=== PATIENT | male | born 1990 | race Caucasian/White ===

== ENCOUNTER 2024-02-26 22:00 | Emergency (ER) | payer OTHER, SELFPAY ==
--- NOTE | 2024-02-26 21:39 | ECG_ITS ---
APPROVED REPORT Exam: Resting ECG HR:85 bpm ECG Measurements Heart Rate 85 AXES GA 166 P 46 QRSd 94 QRS 113 QT 367 T 1 QTc 410 Conclusion SINUS RHYTHM POSSIBLE RIGHT VENTRICULAR HYPERTROPHY [SOME/ALL OF: PROMINENT R IN V1, LATE TRANSITION, RAD, KIM, SSS] NONSPECIFIC T-WAVE ABNORMALITY ABNORMAL ECG Electronically signed by : JESUS EDWARDS, 02/27/2024 00:47:20
[2024-02-26 22:04] VITALS: BP 146/91; PULSE 91; RESP 22; TEMP 36.7; O2SAT 100; BMI 43.4
[2024-02-26 22:12] VITALS: PULSE 91
--- NOTE | 2024-02-26 22:13 | XR_ITS ---
PROCEDURE INFORMATION: Exam: XR Chest Exam date and time: 02/26/2024 10:20 PM Age: 33 years old Clinical indication: Pain; Chest pressure; Additional info: Cp, SOA TECHNIQUE: Imaging protocol: Radiologic exam of the chest. Views: 2 views. COMPARISON: No relevant prior studies available. FINDINGS: Lungs: Unremarkable. No consolidation. Pleural spaces: Unremarkable. No pleural effusion. No pneumothorax. Heart/Mediastinum: Unremarkable. No cardiomegaly. Bones/joints: Unremarkable. IMPRESSION: No acute findings.
--- NOTE | 2024-02-26 22:23 | ED_ITS ---
Discharge Plan Disposition Patient Disposition: Home, Self-Care Condition: Good Referrals Follow up/Referrals: Antoni Bey MD [Staff Physician] - See instructions ProviderVicky MD [Referring] - See instructions Activity Restrictions/Add. Instructions Additional Instructions/Restrictions: You were evaluated in the emergency department today. At this time, your labs and workup are reassuring. Please follow-up very closely with her primary care provider as well as with cardiology. Please call cardiology clinic and schedule an appointment. Return to the emergency department for new or worsening symptoms. Clinical Impressions Clinical Impression: Chest pain Stand Alone Forms Stand Alone Forms: Work/School Release Instructions Patient Instructions: DI for Atypical Chest Pain Print Language Print Language: Albanian Discharge ED Provider: Nohelia Gailcia General Chief Complaint: Chest Pain Stated Complaint: Chest pain Time Seen by Provider: 02/26/24 22:01 Mode of Arrival: Family Vehicle Source of Information: Patient Limitations: No Limitations Description of Symptoms (Recalled from ER Triage Doc. by RN): 33 yo male presents with chest pain. States he had an acute onset of heart palpitations while he was driving, felt syncopal, arms tingled bilaterally and his gums were throbbing. States he has had intermittent symptoms over the course of the past couple of weeks that flare when he does the slightest bit of exertion. Has recently changed his nicotine delivery method but doesn't think its associated. Denies new medications, denies new supplements/stimulants. Takes suboxone and hasn't missed any doses. Patient is a&ox4. History of Present Illness HPI narrative: This patient is a 33-year-old male who denies significant past medical history presenting with concern for chest pain. He reports that he has had intermittent palpitations and presyncope over the last several weeks to months. He states that it flares up with exertion, showering, and today it happened while he was driving approximate 30 minutes prior to arrival. While driving, he said that he got pain across his left chest and felt like his heart was giving a beat. He also states his fingers got tingly and he had tunnel vision. He does note that he recently changed his nicotine delivery method but does not think that it is associated. No recent changes in medications, diet, exercise, caffeine intake, or other concerns. No other associated symptoms. He reports he takes Suboxone but does not with any doses. Related Data Allergies Allergy/AdvReac Type Severity Reaction Status Date / Time No Known Allergies Allergy Unverified 07/16/17 14:12 [facility] Disclaimer: The information contained in this section may have been updated after the patient was seen, as this information can be updated by other users. Social History Smoking Status: Unknown if ever smoked alcohol intake: never current occupational status: employed Travel in the last 8 weeks: None ROS Obtained: Yes All systems reviewed & no additional complaints except as documented Physical Exam General General appearance: alert, in no apparent distress and anxious Head Head exam: atraumatic and normocephalic Eye Eye exam: Present normal appearance, PERRL and EOMI ENT ENT exam: Present normal exam, normal oropharynx, mucous membranes moist and normal external ear exam Neck Neck exam: Present normal inspection, full ROM and trachea midline; Absent tenderness Chest Chest inspection: Present normal inspection and symmetric chest wall rise; Absent tenderness Respiratory Respiratory exam: Present normal lung sounds bilaterally; Absent respiratory distress, wheezes, stridor or accessory muscle use Cardiovascular Cardiovascular exam: Present regular rate and normal rhythm Abdominal Exam Abdominal exam: Present soft; Absent distention, tenderness or guarding Extremities Exam Extremities exam: Present full ROM, normal capillary refill and edema (2+ bilateral lower extremity edema); Absent tenderness Back Exam Back exam: Present normal inspection and full ROM; Absent tenderness Neurological Exam Neurological exam: Present alert, oriented X3, CN II-XII intact and normal gait; Absent motor sensory deficit Psychiatric Psychiatric exam: Present anxious Skin Skin exam: Present warm and dry HEART Score HEART Score HEART Score assessment performed?: Yes History (anamnesis): Slightly suspicious ECG: Normal Age: <45 years Risk factors: No known risk factors Troponin: </= normal limit HEART Score: 0 Critical Care Critical Care Time Critical Care Time: No Medical Decision Making [place] Inquiry Pt receiving controlled substance: No Vital Signs Vital Signs: 02/26/24 22:04 02/26/24 22:12 02/27/24 00:16 Temperature 98.0 F 98 F Temperature Source Oral Oral Pulse Rate 91 H 64 Pulse Rate [Right Brachial] 91 H Respiratory Rate 22 16 Blood Pressure 136/73 Blood Pressure [Right Arm] 146/91 H Blood Pressure Mean [Right Arm] 109 Blood Pressure Source [Right Arm] Automatic Cuff Blood Pressure Position Sitting Blood Pressure Position [Right Arm] Sitting 02 Sat by Pulse Oximetry 100 Oxygen Delivery Method Room Air Lab Data Labs: Lab Results 02/26/24 22:35: WBC 4.3 L, RBC 4.87, Hgb 14.1, Hct 41.4 L, MCV 85.0, MCH 29.0, MCHC 34.1, RDW 14.2, Plt Count 238, MPV 8.0, Neut % (Auto) 50.4, Lymph % (Auto) 37.5, [place] % (Auto) 6.9, Eos % (Auto) 4.0, Baso % (Auto) 1.2, Neut # (Auto) 2.1, Lymph # (Auto) 1.6, [place] # (Auto) 0.3, Eos # (Auto) 0.2, Baso # (Auto) 0.1, D- Dimer 0.35, Sodium 138, Potassium 3.5, Chloride 105, Carbon Dioxide 27, Anion Gap 9.5, BUN 17, Creatinine 1.00, Estimated Creat Clear 115, Estimated GFR 86, Est GFR ( Amer) 104, Glucose 100, Calcium 8.6, Total Bilirubin 0.4, AST 37, ALT 47, Alkaline Phosphatase 82, Troponin I < 0.01, NT-Pro-B Natriuret Pep < 20.0, Total Protein 7.2, Albumin 4.1, Globulin 3.1, Albumin/Globulin Ratio 1.3, Lipase 46, TSH 3.03, Thyroxine (T4) 8.3 02/26/24 22:35 02/26/24 22:35 Response Orders (Tests/Meds): ORDERS Category Date Time Status CXR 2 view (NOT portable) [XR chest 2V] Stat Exams 02/26/24 22:13 Completed BNP [NT Pro Brain Natriuretic Pep.] Stat Lab 02/26/24 22:35 Completed CBC w/Auto Diff [Complete Blood Count Auto Diff] Stat Lab 02/26/24 22:35 Completed CMP [Comprehensive Metabolic Panel] Stat Lab 02/26/24 22:35 Completed D-Dimer Stat Lab 02/26/24 22:35 Completed Lipase Stat Lab 02/26/24 22:35 Completed T4 (Thyroxine) Stat Lab 02/26/24 22:35 Completed TSH [Thyroid Stimulating Hormone] Stat Lab 02/26/24 22:35 Completed Trop I [Troponin I] Stat Lab 02/26/24 22:35 Completed ECG Data Tracing #1: Attestation: I reviewed this ECG and interpreted as documented below: ECG Narrative: Normal sinus rhythm with a ventricular rate of [address] changes concerning for ischemia. Normal axis and intervals. ECG initial impression date: 02/26/24 ECG initial impression time: 22:16 MDM Narrative Medical Decision Narrative: In summary, this patient is a 33-year-old male presenting to the Emergency Department for evaluation of chest pain, palpitations, tunnel vision, presyncope. Differential diagnoses considered include but are not limited to ACS, dysrhythmia, PE, hyperthyroid, anxiety. Ruling out the most morbid conditions drove assessment. On exam, the patient is sitting upright in bed in no acute distress. He is resting comfortably with reassuring vital signs. Cardiopulmonary exam is reassuring. He does have mild bilateral lower extremity edema. Workup included a CBC, CMP, troponin, TSH, T4, BNP, D-dimer, chest x-ray, EKG. I independently interpreted x-ray prior to the radiologist read and noted acute focal consolidation concerning for pneumonia/pneumothorax. Please see their read for final interpretation. Labs were obtained that demonstrated very mild leukopenia. Negative troponin, negative D-dimer, negative BNP. Labs are otherwise reassuring. On reassessment, patient is resting comfortably with no concerns or complaints at this time. Vitals are normal on cardiac telemetry. Ultimately, heart score is 0 with negative chest pain workup thus far. I feel we have excluded life- threatening pathology and that the patient is appropriate for discharge home with close follow-up with primary care as well as cardiology. Strict return precautions were given.
[2024-02-26 22:59] LABS: Basophils # 0.1 K/mm3 (0-0.2); Basophils % 1.2 % (0.1-2.0); Eosinophils # 0.2 K/mm3 (0.0-0.4); Hematocrit 41.4 % (42.0-52.0); Hemoglobin 14.1 g/dL (14.1-18.0); Lymphocytes # 1.6 K/mm3 (0.7-4.5); Lymphocytes % 37.5 % (10-50); Mean Corpuscular HGB Conc 34.1 g/dL (31.8-35.4); Monocytes # 0.3 K/mm3 (0.1-1.0); Monocytes % 6.9 % (1.7-9.3); Neutrophils # 2.1 K/mm3 (1.8-7.8); Neutrophils % 50.4 % (37.0-80.0); Platelet Count 238 K/mm3 (142-424); Red Blood Count 4.87 M/mm3 (4.60-6.20); Red Cell Distribution Width 14.2 % (11.5-17.5); White Blood Count 4.3 K/mm3 (4.8-10.8)
[2024-02-26 23:13] LABS: Alanine Aminotransferase 47 U/L (12-78); Albumin Level 4.1 g/dl (3.5-5.0); Albumin/Globulin Ratio 1.3 (1.1-1.8); Alkaline Phosphatase 82 U/L (38-126); Anion Gap 9.5 mEq/L (5-15); Aspartate Amino Transferase 37 U/L (17-59); Bilirubin,Total 0.4 mg/dl (0.2-1.3); Blood Urea Nitrogen 17 mg/dl (9-20); Calcium 8.6 mg/dl (8.4-10.2); Carbon Dioxide 27 mmol/L (22.0-30.0); Chloride 105 mmol/L (98-107); Creatinine Clearance Estimated 115 mL/min (50-200); Estimated Glomerular Filt Rate 86 ml/min (>60); GFR (African American) 104 ML/MIN (>60); Globulin 3.1 g/dL (1.3-3.2); Glucose 100 mg/dl (74-100); Lipase 46 U/L (23-300); Potassium 3.5 mmoL/L (3.5-5.1); Sodium 138 mmol/L (136-145); Total Protein,Serum 7.2 g/dl (6.3-8.2)
[2024-02-26 23:17] LABS: D-Dimer 0.35 ug/mL (0.0-0.5)
[2024-02-26 23:26] LABS: NT Pro Brain Natriuretic Pep. < 20.0 pg/mL (0-125)
[2024-02-26 23:31] LABS: T4 (Thyroxine) 8.3 ug/dl (5.53-11.0)
[2024-02-26 23:40] LABS: Troponin I < 0.01 ng/ml (0.00-0.034)
[2024-02-26 23:44] LABS: Thyroid Stimulating Hormone 3.03 uIU/mL (0.465-4.68)
[2024-02-27 00:16] VITALS: BP 136/73; PULSE 64; RESP 16; TEMP 36.6
== END 2024-02-27 00:17 | disposition home or self-care (01) ==
PROVIDERS: Emergency Provider Emergency Medicine; PCP Family Medicine
DX: R07.9 Chest pain, unspecified (principal)
CPT/HCPCS: 71046; 80050; 80053; 83690; 83880; 84436; 84443; 84484; 85025; 85378; 93005; 99284

== ENCOUNTER 2024-03-09 15:17 | Outpatient (CLI) | payer OTHER, SELFPAY ==
[2024-03-09 16:11] LABS: Alanine Aminotransferase 33 U/L (12-78); Albumin Level 4.6 g/dl (3.5-5.0); Alkaline Phosphatase 75 U/L (38-126); Aspartate Amino Transferase 29 U/L (17-59); Bilirubin,Indirect 0.6 mg/dL (0.0-0.9); Bilirubin,Total 0.6 mg/dl (0.2-1.3); Bilirubin,Unconjugated 0.6 mg/dL (0.0-1.1); Chol/HDL Ratio 4.8 (1-3.5); Cholesterol 168 mg/dl (140-200); HDL Cholesterol 35 mg/dl (40-60); Total Protein,Serum 7.7 g/dl (6.3-8.2); Triglycerides 242 mg/dl (30-150); VLDL Cholesterol 48 mg/dL (0-40)
[2024-03-09 16:22] LABS: Direct LDL Cholesterol 90.66 mg/dL (100-129)
== END 2024-03-09 23:59 | disposition home or self-care (01) ==
LOC: LAB 15:18
PROVIDERS: PCP Family Medicine; Visit Provider Nurse Practitioner Family
DX: R94.31 Abnormal electrocardiogram [ECG] [EKG] (principal); R00.2 Palpitations; R00.0 Tachycardia, unspecified; R06.00 Dyspnea, unspecified; I10 Essential (primary) hypertension; R07.9 Chest pain, unspecified
CPT/HCPCS: 36415; 80061; 80076; 93270

== ENCOUNTER 2024-03-19 08:23 | Outpatient (CLI) | payer OTHER, SELFPAY ==
--- NOTE | 2024-03-19 08:24 | CA_ITS ---
APPROVED REPORT EXAM: Comprehensive 2D, Doppler, and color-flow Echocardiogram Glass Lined Tank Repairer: Wanda Villeda CRT Ht: 6 ft 0 in Wt: 309lbs BSA: 2.56 BP: 154/89 mmHg Indications: Abnormal ECG, Chest Pain, Shortness of Breath, Palpitations, Hypertension/HDD, TACHYCARDIA 2D Dimensions Left Atrium 3.25 cm LVEF (Gottlieb's) 55.70 % LVOT 2.07 cm (M/F) 1.5-2.5 LV Volume 88.80 mL LA Volume 23.80 mL LA Volume Index 9.30 mL/m2 (M/F) 16-34 EF AP4 64.50 % EF AP2 46.8 % EF BP 55.7 % GL Strain -15.6 % M-Mode Dimensions RVDd 2.76 cm (0.9-2.6) LVDd 4.88 cm (3.5-5.7) Ao Diam 3.62 cm (2.0-3.7) LVDs 3.26 cm (3.5-5.7) IVSd 1.15 cm (0.6-1.1) PWd 0.54 cm (0.6-1.1) EF (Teich) 61.70% FS 33.20% EDV (Teich) 111.70 mL TAPSE 1.51 (<1.7) ESV (Teich) 42.80 mL LV Diastology E Decel Time 150 (160-240 msec) E/A Ratio 1.25 MED E' 9.6 (>= 7 cm/sec) MED A' 11.30 cm/s E'/MED E' Ratio 8.54 (<= 14) LAT E' 8.1 (>= 10 cm/sec) LAT A' 9.20 cm/s E/LAT E' Ratio 10.12 (<= 14) Aortic Valve AoV Peak Naveen. 125.0 (50-130 cm/s) AO Peak GR. 6.30 mmHg Mitral Valve MV E Max Naveen. 82.0 (40-130 cm/s) MV A Velocity 66.0 (40-130 cm/s) E/A Ratio 1.25 MV Decel. Time 150 (160-240 ms) Tricuspid Valve TR P. Velocity 289.00 cm/s RAP Estimate 10.00 mmHg RVSP 43.50 mmHg Left Ventricle The left ventricle is normal size. The left ventricular systolic function is normal. The left ventricular ejection fraction is within the normal range. There is normal left ventricular wall thickness. There is normal LV segmental wall motion. The left ventricular diastolic function is normal. LVEF is 55%. Right Ventricle The right ventricle is normal size. The right ventricular systolic function is normal. Atria The left atrium size is normal. The right atrium size is normal. There is no Doppler evidence of interatrial shunt. Aortic Valve The aortic valve opens well. There is no aortic valvular stenosis. No aortic regurgitation is present. Mitral Valve The mitral valve is normal in structure. No evidence of mitral valve stenosis. Trace mitral regurgitation. Tricuspid Valve The tricuspid valve leaflets are thin and pliable. Trace tricuspid regurgitation. There is insufficient TR jet to estimate RVSP. Pulmonic Valve The pulmonary valve is normal in structure. Mild pulmonic regurgitation. Great Vessels The aortic root is normal in size. The ascending aorta is normal in size. IVC is normal in size and collapses >50% with inspiration. Pericardium There is no pericardial effusion. Other Information Study Quality: Fair Conclusion Normal biventricular systolic function. Mild PI. Electronically signed by : Shanon Griggs MD 03/24/2024 11:48:54
--- NOTE | 2024-03-19 08:24 | CA_ITS ---
APPROVED REPORT Exam: Exercise Treadmill Technologist: Julia Arzate, Ht: 6 ft 0 in Wt: 309 lbs BSA: 2.56 m2 HR: 83 bpm BP: 141/88 mmHg Rhythm: Nsr, right axis deviation, ST abns inferiorly and laterally Medical History Medical History: HTN Medications: BuPRen-NALOXONE,,,,, Allergies: No known drug allergies Cardiac Risk Factors: HTN Stress Test Details Test: Mack HR Resting HR: 108 bpm Max Heart Rate (APMHR): 187 bpm Max HR Achieved: 175 bpm Target HR (85% APMHR): 159 bpm % of APMHR: 94 Recovery HR: 115 bpm HR response to stress: Normal HR response to stress BP Resting BP: 141.0/88 mmHg Max BP: 210/90 mmHg Recovery BP: 145.0/85.0 mmHg BP response to stress: Abnormal hypertensive response to stress. ECG Resting ECG: Nsr, right axis deviation, ST abns inferiorly and laterally Stress EC.[address] depression Arrhythmia: Frequent PVCs Recovery ECG: Return to baseline within 3 minutes of recovery Recovery Arrhythmia: Frequent PVCs Clinical Exercise duration: 09:38 min Highest Stage Achieved: Stage 4: 4.2 mph at 16% grade. Exercise capacity: 10.1 METs Overall Exercise Capacity for Age: Average Stress ECG Conclusion The patient was able to exercise for a total of 9 minutes, 38 seconds. He achieved a total of 10.1 METS. He has average exercise capacity compared to age and sex matched peers. He has normal HR, but exaggerated hypertensive BP, response to exercise. Max HR: 175 % of PM: 94% Max BP: 210/90 Mets: 10.1 Test stopped due to: Soa, fatigue No CP Pt had palpitations Frequent PVCs in stages 1 and 2, going away in stage 3 ST changes: 0.[address] depression Frequent ventricular ectopy Conclusion: Average exercise capacity. ECG demonstrates normal sinus rhythm with baseline T wave abnormalities. No evidence of new ischemic changes at peak stress. Frequent ectopy, including PVCs with bigeminy pattern. Hypertensive response to exercise. BP control is recommended. Test Summary REST . . . . . . . Standing REST . . . . . . . Sitting REST 04:10 0.0 0.0 108 . 141/ 88 . . Stage 1 01:00 10.0 1.7 126 . . . . Stage 1 02:00 10.0 1.7 137 . . . . Stage 1 03:00 10.0 1.7 137 . 156/ 86 . . Stage 2 01:00 12.0 2.5 146 . . . . Stage 2 02:00 12.0 2.5 146 . . . . Stage 2 03:00 12.0 2.5 155 . 210/ 90 . . Stage 3 01:00 14.0 3.4 162 . . . . Stage 3 02:00 14.0 3.4 164 . . . . Stage 3 03:00 14.0 3.4 168 . . . . Stage 4 00:38 16.0 4.2 174 . . . Stop exercise at 09:38 RECOVERY 01:00 0.0 0.0 163 . . . . RECOVERY 02:00 0.0 0.0 144 . . . . RECOVERY 03:00 0.0 0.0 127 . 160/ 72 . . RECOVERY 04:00 0.0 0.0 123 . 166/ 73 . . RECOVERY 05:00 0.0 0.0 120 . 166/ 73 . . RECOVERY 06:00 0.0 0.0 112 . 145/ 85 . . RECOVERY 06:13 0.0 0.0 116 . 145/ 85 . . Electronically signed by : Shanon Griggs MD 03/30/2024 23:04:18
== END 2024-03-19 23:59 | disposition home or self-care (01) ==
LOC: RT 08:24
PROVIDERS: Visit Provider Nurse Practitioner Family
DX: R07.9 Chest pain, unspecified (principal); R06.00 Dyspnea, unspecified; R00.2 Palpitations; R00.0 Tachycardia, unspecified; I10 Essential (primary) hypertension; R94.31 Abnormal electrocardiogram [ECG] [EKG]
CPT/HCPCS: 93017; 93018; 93306

== ENCOUNTER 2025-02-22 10:40 | Outpatient (CLI) | payer OTHER, SELFPAY ==
--- OUTSIDE RECORDS SUMMARY | 2025-02-22 11:13 | XMS_ITS | Data Portability ---
Author Organization [facility] & VANESSA Rivera ADMIN Address [address] [place] [id number] Care Team Providers Care Grant Coordinator Name Role Phone BRISSA SOLIS Sleep Medicine Unavailable [facility] Primary Care Provid er [phone] Assessment Encounter Date Assessment Date Assessment LastModified by Organization Details LastModified Time 12/30/2024 12/30/2024 13 minute video medicine exam performed. [email or web address] Not available 12/30/2024 16:00:32 Plan of Treatment Reminders Order Date Submit Date Provider Last Modified By Organization Details Last Modified Time Details Appointments OV EST 15 2024 01:30P M Brissa Solis MD Not available Not available Not available Lab iron + TIBC + ferritin, serum 2024 025 [facility] (Laboratory), [address], [place], [address], 12/07/2024 16:05:37 CMP, serum or plasma 2024 025 [facility] (Laboratory), [address] [place], [address], 12/07/2024 16:05:37 CBC w/ auto diff 2024 025 [facility] (Laboratory), [address] [place], [address], 12/07/2024 16:02:26 vitamin B12 + folate, serum or blood [email or web address] (Laboratory), [address] [place], [address], 12/14/2024 08:06:36 TSH + free T4, serum 2024 025 [facility] ([facility]atory), [address] [place], [address], 12/07/2024 16:03:39 CMP, serum or plasma 2023 024 [facility] ([facility]atory), [address] [place], [address], 11/07/2023 16:59:58 CBC w/ auto diff 2023 024 [facility] ([facility]atory), [address] [place], [address], 11/07/2023 16:28:19 TSH, serum or plasma 2023 024 [facility] ([facility]atory), [address] [place], [address], 11/07/2023 16:59:56 vitamin B12, serum 2023 024 [facility] ([facility]atory), [address] [place], [address], 11/07/2023 17:00:01 vitamin D, 25-hydrox y, total, serum [address] (Laboratory), [address] [place], [address], 11/13/2023 07:46:57 HbA1c (hemoglob in A1c), blood 2023 024 [facility] ([facility]atory), [address] [place], [address], 11/07/2023 16:38:34 lipid panel, serum 2023 024 [facility] ([facility]atory), [address] [place], [address], 11/07/2023 17:00:00 Referral otolaryng ologist referral 2023 024 [place] [address] Renée Aguilar MD, [address] [place], [address], 12/10/2023 11:23:21 Procedures None recorded. Surgeries None recorded. Imaging home sleep study [address] (Scheduling), [address] [place], [address], 12/14/2024 08:06:33 US, doppler, venous - both legs [address] (Scheduling), [address] [place], [address], 11/11/2023 07:54:52 Medication Orders hydrochlo rothiazid e 12.5 mg tablet [address] [facility], [address] [place] [address], [id number], 12/07/2024 11:14:57 Magic Mouthwash w/ Nystatin [address] [facility], [address] [place] [address] [facility] [place] [id number], 12/07/2024 11:14:59 Patient TargetsNo targets recorded. Patient InstructionsNo instructions recorded. 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 Referring Physician: Boo Quintana, Family Medicine, Encounter Date: 12/03/2023 Results Created Date Observation Date Name Description Value Unit Range Abnormal Flag Note LastModifiedBy Organization Detail LastModifiedTime 11/07/19 24 11/07/2023 CBC AUTO W DIFF WBC 5.9 10 4.5-11 .5 Not Available [facility] (Lab Registration) [address] [place], [address], 11/07/2023 16:28:19 11/07/19 24 11/07/2023 CBC AUTO W DIFF RBC 5.34 10 4.25-5 .57 Not Available [facility] (Lab Registration) [address] [place], [address], 11/07/2023 16:28:19 11/07/19 24 11/07/2023 CBC AUTO W DIFF HGB 14.8 g/dL 13.5-1 7.2 Not Available [facility] (Lab Registration) [address] [place], [address], 11/07/2023 16:28:19 11/07/19 24 11/07/2023 CBC AUTO W DIFF HCT 43.6 % 42.0-5 2.0 Not Available [facility] (Lab Registration) [address] [place], [address], 11/07/2023 16:28:19 11/07/19 24 11/07/2023 CBC AUTO W DIFF MCV 81.6 fL 80-95 Not Available [facility] (Lab Registration) [address] [place], [address], 11/07/2023 16:28:19 11/07/19 24 11/07/2023 CBC AUTO W DIFF MCH 27.7 pg 27.0-3 4.0 Not Available [facility] (Lab Registration) [address] [place], [address], 11/07/2023 16:28:19 11/07/19 24 11/07/2023 CBC AUTO W DIFF MCHC 33.9 g/dL 32.0-3 6.0 Not Available [facility] (Lab Registration) [address] [place], [address], 11/07/2023 16:28:19 11/07/19 24 11/07/2023 CBC AUTO W DIFF platelet count 262 10 150-45 0 Not Available [facility] (Lab Registration) [address] [place], [address], 11/07/2023 16:28:19 11/07/19 24 11/07/2023 CBC AUTO W DIFF RDW 12.4 % 12.3-1 5.1 Not Available [facility] (Lab Registration) [address] [place], [address], 11/07/2023 16:28:19 11/07/19 24 11/07/2023 CBC AUTO W DIFF MPV 11.0 fL 7.4-10 .4 high Not Available [facility] (Lab Registration) [address] [place], [address], 11/07/2023 16:28:19 11/07/19 24 11/07/2023 CBC AUTO W DIFF granulocyte% 50.0 % 40-75 Not Available [facility] (Lab Registration) [address] [place], [address], 11/07/2023 16:28:19 11/07/19 24 11/07/2023 CBC AUTO W DIFF lymphocyte% 35.8 % 15-57 Not Available [facility] ([facility] Registration) [address] [place], [address], 11/07/2023 16:28:19 11/07/19 24 11/07/2023 CBC AUTO W DIFF monocyte% 8.2 % 4.0-12 .0 Not Available [facility] (Lab Registration) [address] [place], [address], 11/07/2023 16:28:19 11/07/19 24 11/07/2023 CBC AUTO W DIFF eosinophil% 5.5 % 0.0-4. 0 high Not Available [facility] (Lab Registration) [address] [place], [address], 11/07/2023 16:28:19 11/07/19 24 11/07/2023 CBC AUTO W DIFF basophil% 0.5 % 0.0-1. 0 Not Available [facility] (Lab Registration) [address] [place], [address], 11/07/2023 16:28:19 11/07/19 24 11/07/2023 CBC AUTO W DIFF immature granulocytes % 0.0 % 0.0-0. 8 Not Available [facility] (Lab Registration) [address] [place], [address], 11/07/2023 16:28:19 11/07/19 24 11/07/2023 CBC AUTO W DIFF granulocyte# 2.94 10 Not Available [facility] (Lab Registration) [address] [place], [address], 11/07/2023 16:28:19 11/07/19 24 11/07/2023 CBC AUTO W DIFF lymphocyte# 2.10 10 Not Available [facility] (Lab Registration) [address] [place], [address], 11/07/2023 16:28:19 11/07/19 24 11/07/2023 CBC AUTO W DIFF monocyte# 0.48 10 Not Available [facility] (Lab Registration) [address] [place], [address], 11/07/2023 16:28:19 11/07/19 24 11/07/2023 CBC AUTO W DIFF eosinophil# 0.32 10 Not Available [facility] (Lab Registration) [address] [place], [address], 11/07/2023 16:28:19 11/07/19 24 11/07/2023 CBC AUTO W DIFF basophil# 0.03 10 Not Available [facility] (Lab Registration) [address] [place], [address], 11/07/2023 16:28:19 11/07/19 24 11/07/2023 CBC AUTO W DIFF immature granulocytes # 0.00 10 Not Available [facility] (Lab Registration) [address] [place], [address], 11/07/2023 16:28:19 11/07/19 24 11/07/2023 CBC AUTO W DIFF manual differential NO Not Available [facility] (Lab Registration) [address] [place], [address], 11/07/2023 16:28:19 11/07/19 24 11/07/2023 CBC AUTO W DIFF note Unles s other mccarthy noted testi ng perfo rmed at: [facility] [address] [place] [address] [phone] Jabari dorman MD CLIA: [id number] Not Available [facility] (Lab Registration) [address] [place], [address], 11/07/2023 16:28:19 11/07/19 24 11/07/2023 HEMOG LOBIN A1C glycosylated hemoglobin A1C 5.3 % 4.5-6. 2 Not Available [facility] (Lab Registration) [address] [place], [address], 11/07/2023 16:38:34 11/07/19 24 11/07/2023 HEMOG LOBIN A1C estimated average glucose 105 mg/dL 82-131 Not Available [facility] (Lab Registration) [address] [place], [address], 11/07/2023 16:38:34 11/07/19 24 11/07/2023 HEMOG LOBIN A1C note Unlshweta dorman other mccarthy noted testi ng perfo rmed at: [facility] [address] [place] [address] [phone] Jabari dorman MD CLIA: [id number] Not Available [facility] (Lab Registration) [address] [place], [address], 11/07/2023 16:38:34 11/07/19 24 11/07/2023 THYRO ID STIMU LATIN G HORMO NE thyroid stimulating hormone 3.44 mIU/m L 0.34-4 .80 Not Available [facility] (Lab Registration) [address], [place], [address], 11/07/2023 16:59:55 11/07/19 24 11/07/2023 THYRO ID STIMU LATIN G HORMO NE note Unles s other mccarthy noted testi ng perfo rmed at: [facility] [address] [place] [address] [phone] Jabari dorman MD CLIA: [id number] Not Available [facility] (Lab Registration) [address] [place], [address], 11/07/2023 16:59:55 11/07/19 24 11/07/2023 VITAM IN D TOTAL (D2+D 3) vitamin D25 (D2+D3) 12.5 NG/mL 30-100 low Not Available [facility] (Lab Registration) [address] [place], [address], 11/07/2023 16:59:57 11/07/19 24 11/07/2023 VITAM IN D TOTAL (D2+D 3) note Unles s other mccarthy noted testi ng perfo rmed at: [facility] [address] [place] [address] [phone] Jabari dorman MD CLIA: [id number] Not Available [facility] (Lab Registration) [address] [place], [address], 11/07/2023 16:59:57 11/07/19 24 11/07/2023 COMP METAB OLIC PANEL sodium 141 mmol/ L 136-14 5 Not Available [facility] (Lab Registration) [address] [place], [address], 11/07/2023 16:59:58 11/07/19 24 11/07/2023 COMP METAB OLIC PANEL potassium 4.4 mmol/ L 3.5-5. 1 Not Available [facility] (Lab Registration) [address] [place], [address], 11/07/2023 16:59:58 11/07/19 24 11/07/2023 COMP METAB OLIC PANEL chloride 103 mmol/ L 98-107 Not Available [facility] (Lab Registration) [address] [place], [address], 11/07/2023 16:59:58 11/07/19 24 11/07/2023 COMP METAB OLIC PANEL carbon dioxide 30 mmol/ L 21-32 Not Available [facility] (Lab Registration) [address] [place], [address], 11/07/2023 16:59:58 11/07/19 24 11/07/2023 COMP METAB OLIC PANEL anion gap 8.0 Not Available [facility] (Lab Registration) [address] [place], [address], 11/07/2023 16:59:58 11/07/19 24 11/07/2023 COMP METAB OLIC PANEL glucose 91 mg/dL 70-110 Not Available [facility] (Lab Registration) [address] [place], [address], 11/07/2023 16:59:58 11/07/19 24 11/07/2023 COMP METAB OLIC PANEL blood urea nitrogen 11 mg/dL 7-18 Not Available [facility] (Lab Registration) [address] [place], [address], 11/07/2023 16:59:58 11/07/19 24 11/07/2023 COMP METAB OLIC PANEL creatinine 1.0 mg/dL 0.8-1. 3 Not Available [facility] (Lab Registration) [address] [place], [address], 11/07/2023 16:59:58 11/07/19 24 11/07/2023 COMP METAB OLIC PANEL BUN/creatini ne ratio 11.0 ratio 9-21 Not Available [facility] (Lab Registration) [address] [place], [address], 11/07/2023 16:59:58 11/07/19 24 11/07/2023 COMP METAB OLIC PANEL estimated glom filtration rate 91 mL/mi n >60- Not Available [facility] (Lab Registration) [address] [place], [address], 11/07/2023 16:59:58 11/07/19 24 11/07/2023 COMP METAB OLIC PANEL total protein 7.6 g/dL 6.4-8. 2 Not Available [facility] (Lab Registration) [address] [place], [address], 11/07/2023 16:59:58 11/07/19 24 11/07/2023 COMP METAB OLIC PANEL albumin 4.2 g/dL 3.4-5. 0 Not Available [facility] (Lab Registration) [address] [place], [address], 11/07/2023 16:59:58 11/07/19 24 11/07/2023 COMP METAB OLIC PANEL calcium 9.4 mg/dL 8.5-10 .1 Not Available [facility] (Lab Registration) [address] [place], [address], 11/07/2023 16:59:58 11/07/19 24 11/07/2023 COMP METAB OLIC PANEL corrected calcium 9.2 mg/dL 8.5-10 .1 Not Available [facility] (Lab Registration) [address] [place], [address], 11/07/2023 16:59:58 11/07/19 24 11/07/2023 COMP METAB OLIC PANEL bilirubin total 0.6 mg/dL 0.4-1. 5 Not Available [facility] (Lab Registration) [address] [place], [address], 11/07/2023 16:59:58 11/07/19 24 11/07/2023 COMP METAB OLIC PANEL AST (SGOT) 22 U/L 15-37 Not Available [facility] (Lab Registration) [address] [place], [address], 11/07/2023 16:59:58 11/07/19 24 11/07/2023 COMP METAB OLIC PANEL ALT (SGPT) 50 U/L 12-78 Not Available [facility] (Lab Registration) [address] [place], [address], 11/07/2023 16:59:58 11/07/19 24 11/07/2023 COMP METAB OLIC PANEL alk phosphatase 94 U/L 50-170 Not Available [facility] (Lab Registration) [address] [place], [address], 11/07/2023 16:59:58 11/07/19 24 11/07/2023 COMP METAB OLIC PANEL note Unles s other mccarthy noted testi ng perfo rmed at: [facility] [address] [place] [address] [phone] Jabari dorman MD CLIA: [id number] Not Available [facility] (Lab Registration) [address] [place], [address], 11/07/2023 16:59:58 11/07/19 24 11/07/2023 LIPID PANEL triglyceride 105 mg/dL 20-200 The Natio nal [employer]ca t[employer] am ([employer]CE[employer] ) has set the follo wing guide lines for Fasti ng Trigl yceri hiwot: RUSSELL L: <150 mg/dL BORDE RLINE HIGH: 150 - 199 mg/dL HIGH: 200 - 499 mg/dL VERY HIGH: > or =500 mg/dL Not Available [facility] (Lab Registration) [address] [place], [address], 11/07/2023 17:00:00 11/07/19 24 11/07/2023 LIPID PANEL cholesterol 161 mg/dL 0-200 The Natio nal [employer]ilde [employer] l [employer]ca tion Progr am ([facility] ) has set the follo wing guide lines for Fasti ng Clotilde stero l: MICAH ABLE: <200 mg/dL BORDE RLINE HIGH: 200 - 239 mg/dL HIGH: > or =240 mg/dL Not Available [facility] (Lab Registration) [address], [place], [address], 11/07/2023 17:00:00 11/07/19 24 11/07/2023 LIPID PANEL HDL cholesterol 36 mg/dL 60- low The Natio nal [employer]ca t[employer]gr am ([facility] ) has set the follo wing guide lines for Fasti ng HDL Clotilde stero l: LOW HDL: <40 mg/dL RUSSELL L: 40 - 60 mg/dL MICAH ABLE: >60 mg/dL Not Available [facility] (Lab Registration) [address] [place], [address], 11/07/2023 17:00:00 11/07/19 24 11/07/2023 LIPID PANEL LDL calculated 104 mg/dL 100- The Natio nal [employer]ca t[employer]gr am ([facility] ) has set the follo wing guide lines for Fasti ng LDL Clotilde stero l: OPTIM AL: < 100 mg/dL LOW RISK: 100 - 129 mg/dL BORDE RLINE HIGH: 130 - 159 mg/dL HIGH: 160 - 189 mg/dL VERY HIGH: > or = 190 mg/dL Not Available [facility] (Lab Registration) [address] [place], [address], 11/07/2023 17:00:00 11/07/19 24 11/07/2023 LIPID PANEL chol/HDL ratio 4 ratio -5 Not Available [facility] ([facility]) [address] [place], [address], 11/07/2023 17:00:00 11/07/19 24 11/07/2023 LIPID PANEL note Unles s other mccarthy noted testi ng perfo rmed at: [facility] [address] [place] [address] [phone] Jabari dorman MD CLIA: [id number] Not Available [facility] (Lab Registration) [address] , [place], [address], 11/07/2023 17:00:00 11/07/19 24 11/07/2023 VITAM IN B12 vitamin B12 580 pg/mL 193-98 6 Not Available [facility] (Lab Registration) [address] [place], [address], 11/07/2023 17:00:01 11/07/19 24 11/07/2023 VITAM IN B12 note Unles s other mccarthy noted testi ng perfo rmed at: [facility] [address] [place] [address] [phone] Jabari dorman MD CLIA: [id number] Not Available [facility] (Lab Registration) [address] [place], [address], 11/07/2023 17:00:01 11/12/19 24 11/12/2023 vein extre m lwr bilat duplx [facility] [place] [address] Phone: Fax: Name: KARIE SCHNEIDER Exam Date: 024 : 1989 Age 33 years Gender : M Access ion: [id number] Physic carrie: BOO [place]IN[place]NA Facili ty: [facility] Facili ty HSV: Outpat ient Exam: VENOUS DUPLEX LOWER BILATE RAL DUPLEX VENOUS SONOGR APHY OF THE LOWER EXTREM ITIES HISTOR Y: Lower extrem ity pain and swelli ng Multip le transv erse and longit udinal scans were perfor med of the femoro poplit eal deep venous system s bilate rally, with augmen tation and compre ssion maneuv ers. Normal phasic flow was noted in the visual ized deep venous system s no intral uminal increa sed echoge nicity is noted to sugges t thromb us. There is normal compre ssion and augmen tation of the venous struct ures. No abnorm al venous collat erals are seen. IMPRES NATI: No eviden ce of deep venous thromb osis of the lower extrem ities. Films review ed , interp reted and dictat ed by Dr. Mook Cohen . Transc ribed by Mathieu Abdul PA-C. Dictat ed By: MOOK COHEN Transc ribed By: MOOK COHEN Transc ribed On: 024 4:21 PM Electr onical ly signed by: MOOK COHEN 024 [facility] Legall y authen ticate d by NOEL Black MD 0 11-11 16:21: 28 CC'ed Logic: Orderi ng Provid er: LAYLA HADDAD CC Provid er: LAYLA HADDAD Attend ing Provid er: LAYLA HADDAD Referr ing Provid er: LAYLA HADDAD Admitt ing Provid er: LAYLA willams[address] [place] [address] (Radiology) [address] [place], [address], 11/13/2023 16:20:09 02/26/20 24 02/26/2024 imagi ng inter preta tion No observ ation record ed. [email or web address] [facility] [address], [place], [address], 02/27/2024 07:59:34 02/27/20 24 02/26/2024 imagi ng inter preta tion No observ ation record ed. [email or web address] [facility] [address], [place], [address], 02/27/2024 09:03:09 12/23/19 25 12/11/2024 home sleep study No observ ation record ed. [facility] ([facility]uling[facility] [address] [place], [address], 12/23/2024 11:49:31 Result Notes None recorded. Problems Name Problem SNOMED Code Status Onset Date Resolution Date Notes Provider Name and Address Organization Details Recorded Time Family history of cancer of colon 894745394 Active 2023 KENDAL Lowery [facility] & [place] 4 14:00:20 Aphthous ulcer of mouth 418812399 Active 2023 [facility] [place] 4 14:00:15 Dependent edema 455917591 Active 2023 KENDAL Lowery [facility] & [place] 4 14:00:18 History of opioid abuse 77116891841325 0 Active 2023 KENDAL Lowery [facility] & [place] 4 14:00:22 Problem Notes None recorded. Medical Equipment None Reported. Allergies No known drug allergies Medications Name Sig Start Date Stop Date Status Note LastModified by Organization Details LastModified Time Magic Mouthwash w/ Nystatin 5 mL swish and expel t.i.d. x7 days 2023 active Not Available Not Available Not Avai lable Magic Mouthwash w/ Nystatin 5 mL swish and expel t.i.d. x7 days 12/07 completed Not Available Not Available Not Available ibuprofen 800 mg tablet 11/03 completed Not Available Not Available Not Available prednisone 20 mg tablet 11/03 completed Not Available Not Available Not Available bisoprolol fumarate 5 mg tablet TAKE 1 TABLET(5 mg) orally every day 12/07 completed Not Available Not Available Not Available amoxicillin 875 mg tablet 11/03 completed Not Available Not Available Not Available buprenorphi ne 8 mg-naloxone 2 mg sublingual tablet DISSOLVE 1 & 1/2 TABLET UNDER THE TONGUE ONCE DAILY active Not Available Not Available No t Available hydrochloro thiazide 12.5 mg tablet Take 1 tablet every day by oral route as needed. 12/07 completed Not Available Not Available Not Available Suboxone 8 mg-[address] 1 film every day by sublingua l route. 12/02 completed Not Available Not Available Not Available [facility] COVID-19 Antigen Rapid Home Test kit 11/03 completed Not Available Not Available Not Available Vitals Date Recorded Body height Body mass index (BMI) Body weight Body temperature Oxygen saturation Oxygen saturation in Arterial blood by Pulse oximetry Heart rate Respiratory rate Systolic And Diastolic Provider Name and Address Organization Details Last Updated DateTime 4 182.88 cm 44.3 kg/m2 005654. 7 g 99 [degF] 98 % 98 % 84 /min 18 /min 140/87 mm[Hg] Brady EDMONDS [facility] & [place] 4 15:37:46 Date Recorded Body height Body mass index (BMI) Body weight Body temperature Oxygen saturation Oxygen saturation in Arterial blood by Pulse oximetry Heart rate Respiratory rate Systolic And Diastolic Provider Name and Address Organization Details Last Updated DateTime 4 182.88 cm 44.3 kg/m2 609553. 7 g 98.4 [degF] 98 % 98 % 83 /min 18 /min 133/86 mm[Hg] Brady EDMONDS [facility] & [place] 4 13:59:38 Date Recorded Body height Body mass index (BMI) Body weight Body temperature Oxygen saturation Oxygen saturation in Arterial blood by Pulse oximetry Heart rate Respiratory rate Systolic And Diastolic Provider Name and Address Organization Details Last Updated DateTime 5 182.88 cm 42.2 kg/m2 570335. 23 g 99.5 [degF] 95 % 95 % 113 /min 18 /min 134/78 mm[Hg] Brady Rodriguez MADELEINE [facility] [place] 5 11:14:31 Date Recorded Body height Body mass index (BMI) Body weight Body temperature Oxygen saturation Oxygen saturation in Arterial blood by Pulse oximetry Heart rate Provider Name and Address Organization Details Last Updated DateTime 5 182.88 cm 42.2 kg/m2 194986. 23 g 98.7 [degF] 95 % 95 % 107 /min Inez EDMONDS [facility] & [place] 5 15:20:30 Social History Question Answer Notes LastModified by Organizat ion Details LastModified Time Tobacco Smoking Status Current Some Day Smoker Brady Rodriguez [facility] & [place] 12/07/2024 11:14:48 Do You Have An Advance Directive? No [email or web address] Information not available 12/03/2023 Do You Wear A Helmet When Biking? Yes [email or web address] Information not available 12/03/2023 Are You Blind Or Do You Have Difficulty Seeing? No [email or web address] Information not available 12/03/2023 What Is Your Level Of Caffeine Consumption? Occasional [email or web address] Information not available 11/04/2023 In The 14 Days Before Symptom Onset, Have You Had Close Contact With A Laboratory-confir med COVID-19 While That Case Was Ill? No [email or web address] Information not available 12/03/2023 In The 14 Days Before Symptom Onset, Have You Had Close Contact With A Person Who Is Under Investigation For COVID-19 While That Person Was Ill? No [email or web address] Information not available 12/03/2023 Have You Been To An Area Known To Be High Risk For COVID-19? No [email or web address] Information not available 12/03/2023 Are You Deaf Or Do You Have Serious Difficulty Hearing? No [email or web address] Information not available 12/03/2023 What Type Of Diet Are You Following? REGULAR [email or web address] Information not available 12/03/2023 Have You Processed Blood Or Body Fluids From An Ebola Virus Disease Patient Without Appropriate PPE? No [email or web address] Information not available 12/03/2023 Do You Reside In Or Have You Traveled To An Area Where Ebola Virus Transmission Is Active? No [email or web address] Information not available 12/03/2023 Have There Been Any Changes To Your Family Or Social Situation? No [email or web address] Information no t available 12/03/2023 What Is The Fluoride Status Of Your Home? Unknown [email or web address] Information not available 12/03/2023 When Did You Quit Smoking? 1-5yearssincel astcigarette [email or web address] Information not available 12/03/2023 Are There Any Guns Present In Your Home? No [email or web address] Information not available 12/03/2023 Have You Recently Or Are You Planning To Travel To An Area With Zika Virus? No [email or web address] Information not available 12/03/2023 Do You Use Insect Repellent Routinely? Yes [email or web address] Information not available 12/03/2023 Do You Feel Safe At Home? Yes [email or web address] Information not available 12/03/2023 Do You Have A Medical Power Of Staff Editor? No [email or web address] Information not available 12/03/2023 What Was The Date Of Your Most Recent Tobacco Screening? 12/27/2024 [email or web address] Information not available 12/30/2024 Do You Have Any Pets? No [email or web address] Information not available 12/03/2023 Do You Use Your Seat Belt Or Car Seat Routinely? Yes Information not available 12/03/2023 Do You Have Smoke And Carbon Monoxide Detectors In Your Home? Yes [email or web address] Information not available 12/03/2023 At What Age Did You Start Smoking Tobacco? 20 [email or web address] Information not available 12/03/2023 Are You Passively Exposed To Smoke? Yes [email or web address] Information no t available 12/07/2024 How Much Tobacco Do You Smoke? 0.25 PPD [email or web address] Information not available 12/07/2024 Do You Use Sunscreen Routinely? Yes [email or web address] Information not available 12/03/2023 How Many Years Have You Smoked Tobacco? 13 ndlwaofw51 Information not available 12/03/2023 Do You Have Difficulty Walking Or Climbing Stairs? No [email or web address] Information not available 12/03/2023 Are You Currently In School? No Information not available 12/03/2023 Sex: Unknown Functional Status Question Answer Note LastModified by Organizat ion Details LastModified Time Do you use any illicit or recreational drugs? No [email or web address] Information not available 11/04/2023 Do you or have you ever used any other forms of tobacco or nicotine? No [email or web address] Information not available 11/04/2023 What is your level of alcohol consumption? None [email or web address] Information not available 12/03/2023 Do you or have you ever used smokeless tobacco? Current snuff user zygyqgkr29 Information not available 12/07/2024 Are you currently employed? Yes wxlbdhfe82 Information not available 12/03/2023 Do you have transportation difficulties? No [email or web address] Information not available 12/03/2023 Are you able to walk? YESWOREST Information not available 12/03/2023 Do you have difficulty doing errands alone? No [email or web address] Information not available 12/03/2023 Are you able to care for yourself independently? Yes [email or web address] Information not available 12/03/2023 What is your occupation? construction blqxuqkz17 Information not available 12/03/2023 Do you have difficulty dressing, bathing, grooming, or toileting? No [email or web address] Information not available 12/03/2023 What is your exercise level? Occasional [email or web address] Information not available 12/07/2024 Mental Status Question Answer Note LastModified by Organizat ion Details LastModified Time Do you feel stressed (tense, restless, nervous, or anxious, or unable to sleep at night)? [id number] [email or web address] Information not available 12/07/2024 Do you have difficulty concentrating, remembering or making decisions? No [email or web address] Information no t available 12/03/2023 Family History Relationship Description Onset Age of this Age Resolved Age Notes LastModified by Organization Details LastModified Time Maternal Grandmother Malignant neoplasm of skin [email or web address] Not available 12/30 15:08:38 Maternal Grandmother Heart failure [email or web address] Not available 12/30 15:08:38 Maternal Grandfather Malignant tumor of colon [email or web address] Not available 12/30 15:08:38 Father Disorder of endocrine system pt. added direct ly (12/01) [email or web address] Not available 12/02/2023 14:13:36 Mother Chronic obstructive pulmonary disease pt. added direct ly (12/01) [email or web address]-13 Not available 12/02/2023 14:13:51 Medical History Condition Response Headaches Y Hypertension Y Immunizations Vaccine Type Date Status Note Provider Nam e and Address Organization Details Recorded Time MMR 2 completed KENDAL Lowery [facility] & [place] 11/04/2023 15:38:09 Td (adult), 2 Lf tetanus toxoid, preservative free, adsorbed 3 completed KENDAL Lowery [facility] & [place] 11/04/2023 15:38:09 Hep B, adolescent or pediatric 2 completed [facility], K[facility]AL - [facility] [place] & [place] 11/04/2023 15:38:09 Hep B, adolescent or pediatric 3 completed [facility], KENDAL - [facility] - [place] & [place] 11/04/2023 15:38:09 Hep B, adolescent/high risk 9 completed [facility], KENDAL - [facility] - [place] & [place] 11/04/2023 15:38:09 Past Encounters Encounter ID Performer Location Encounter Start Date Encounter Closed Date Diagnosis/Indication Diagnosis SNOMED-CT Code Diagnosis ICD10 Code Diagnosis Note [id number] Boo Quintana MD [facility] [address] [place] [place] [id number] 11/04/2023 15:27:17 11/05/2023 11:30:08 Dependent edema 596770936 R60.0 Significan t dependent edema left greater than right. Most concern for venous insufficie ncy. We will proceed with evaluation including venous Dopplers bilateral. Patient will return fasting for blood work. Please draw CMP hemoglobin A1c lipid panel CBC TSH vitamin B12 vitamin D. await test results before determinin g appropriat e treatment. See back in 1 month Chest wall pain 79219478 6 R07.89 Workup in the emergency room was negative. Patient's symptoms are consistent with chest wall pain cardiac. Lungs are clear may use over-the-c ounter anti-infla mmatory for now symptoms should resolve. Aphthous u lcer of mouth 395668515 K12.0 patient has been using patches for nicotine dependence . He has physical findings oral and gum irritation . Aphthous ulcer is seen. We will try magic mouthwash with nystatin. Recheck in 1 month. History of opioid abuse [id number] 36181 F11.11 patient has been on Suboxone for several years. This with rehab center. [id number] Boo Quintana MD [facility] [address] [id number] 11/07/2023 13:51:56 11/07/2023 16:20:07 Dependent edema 977205975 R60.0 Significan t dependent edema left greater than right. Most concern for venous insufficie ncy. We will proceed with evaluation including venous Dopplers bilateral. Patient will return fasting for blood work. Please draw CMP hemoglobin A1c lipid panel CBC TSH vitamin B12 vitamin D. await test results before determinin g appropriat e treatment. 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 Dependent edema 63001617 4 R60.0 Venous Doppler and blood work normal. Use p.r.n. diuretic [id number] NYDIA JEAN [place]TIST[place] [address] [facility] [place] [id number] 12/07/2024 11:01:11 12/07/2024 15:17:05 Fatigue 75467702 R53.83 awaiting labs Elevated blood-pressure reading without diagnosis of hypertension 370884826 R03.0 elevated BP reading this morning 134/78prov ided BP log to record at home 2x/day over the next few weeksinstr ucted to keep BP diary if possible to associate w/ activities performedi nstructed proper way to record BPinstruct ed to make appointmen t in 2 weeks for f/u Suspected respiratory disease 088297102 R29.818 referral for sleep studyprovi ded education on importance of proper sleep hygiene [id number] Brissa Solis MD [facility] [place] [address] [place] [address] [place] [id number] 12/30/2024 15:07:55 12/30/2024 15:39:47 Obstructive sleep apnea syndrome 85105611 G47.33 Start patient on auto PAP 6-20 cm H2O. Follow up in 2 months. Morbid obesity 609866311 E66.01 Patient aware that weight loss wouldif not improve not eliminate his need for Pap therapy. We are going to Work on diet and exercise. Health Concerns Section Related Observation LastModified by Organization Detai ls LastModified Time None Recorded Concern Status LastModified by Organization Details LastModified Time None Recorded Advance Directives Directive N: Payers Insurance Date Sequence Insurance Name Policy Number Policy Vazquez Covered Member ID Vazquez Member ID Guarantor Name 02/15/2024 [employer]HEAL Karie Schneider [id number] Karie Schneider 12/27/2024 1 [employer] [facility] (MEDICAID HMO) Karie Schneider [id number] Karie Schneider
--- OUTSIDE RECORDS SUMMARY | 2025-02-22 11:13 | XMS_ITS | Continuity of Care Document ---
Author Organization [facility] [place] Address [address] [place] [place] [address] Care Team Providers Care Optical Element Coater Name Role Phone RHETT SOLIS Sleep Medicine Unavailable [facility] Primary Care Provid er [phone] Assessment Encounter Date Assessment Date Assessment LastModified by Organization Details LastModified Time 12/30/2024 12/30/2024 13 minute video medicine exam performed. [email or web address] Not available 12/30/2024 16:00:32 Plan of Treatment Reminders Order Date Submit Date Provider Last Modified By Organization Details Last Modified Time Details Appointments OV EST 15 025 01:30PM Rhett Solis MD Not available Not available Not available Lab None record ed. Referral None record ed. Procedures None record ed. Surgeries None record ed. Imaging None record ed. Medication Orders None record ed. Patient TargetsNo targets recorded. Patient InstructionsNo instructions recorded. Reason for Referral None Reported. Results Created Date Observation Date Name Description Value Unit Range Abnormal Flag Note LastModifiedBy Organization Detail LastModifiedTime 12/23/1912/11/2024 home sleep study No observ ation record ed. [facility] (Scheduling) [address], [place], [address], 12/23/2024 11:49:31 Result Notes None recorded. Problems Name Problem SNOMED Code Status Onset Date Resolution Date Notes Provider Name and Address Organization Details Recorded Time Family history of cancer of colon 019765855 Active 2023 [facility], [facility] & [place] 05/07/202 4 14:00:20 Aphthous ulcer of mouth 921608082 Active 2023 KENDAL Lowery [facility] & [place] 4 14:00:15 Dependent edema 887808303 Active 2023 KENDAL Lowery [facility] & [place] 4 14:00:18 History of opioid abuse 90601747158497 0 Active 2023 KENDAL Lowery [facility] & [place] 4 14:00:22 Problem Notes None recorded. Medical [...] completed Not Available Not Available Not Available [facility] COVID-19 Antigen Rapid Home Test kit 11/03 completed Not Available Not Available Not Available Vitals Date Recorded Body height Body mass index (BMI) Body weight Body temperature Oxygen saturation Oxygen saturation in Arterial blood by Pulse oximetry Heart rate Provider Name and Address Organization Details Last Updated DateTime 182.88 cm 42.2 kg/m2 329012. 23 g 98.7 [degF] 95 % 95 % 107 /min Inez Burtonsai [facility] & [place] 15:20:30 Social History Question Answer Notes LastModified by Organizat ion Details LastModified Time Tobacco Smoking Status Current [facility] [place] 12/07/2024 11:14:48 Do You Have An Advance Directive? No [email or web address] Information not available 12/03/2023 Do You Wear A Helmet When Biking? Yes [email or web address] Information not available 12/03/2023 Are You Blind Or Do You Have Difficulty Seeing? No gbqiqsoe80 Information not available 12/03/2023 What Is Your Level Of Caffeine Consumption? Occasional Information not available 11/04/2023 In The 14 Days Before Symptom Onset, Have You Had Close Contact With A Laboratory-confir med COVID-19 While That Case Was Ill? No [email or web address] Information not available 12/03/2023 In The 14 Days Before Symptom Onset, Have You Had Close Contact With A Person Who Is Under Investigation For COVID-19 While That Person Was Ill? No [email or web address] Information not available 12/03/2023 Have You Been To An Area Known To Be High Risk For COVID-19? No [email or web address] Information not available 12/03/2023 Are You Deaf Or Do You Have Serious Difficulty Hearing? No nwphgcqo33 Information not available 12/03/2023 What Type Of Diet Are You Following? REGULAR [email or web address] Information not available 12/03/2023 Have You Processed Blood Or Body Fluids From An Ebola Virus Disease Patient Without Appropriate PPE? No tohtxgyo02 Information not available 12/03/2023 Do You Reside In Or Have You Traveled To An Area Where Ebola Virus Transmission Is Active? No [email or web address] Information not available 12/03/2023 Have There Been Any Changes To Your Family Or Social Situation? No [email or web address] Information no t available 12/03/2023 What Is The Fluoride Status Of Your Home? Unknown djkvghso70 Information not available 12/03/2023 When Did You Quit Smoking? 1-5yearssincel christi upgffonh11 Information not available 12/03/2023 Are There Any Guns Present In Your Home? No Information not available 12/03/2023 Have You Recently Or Are You Planning To Travel To An Area With Zika Virus? No [email or web address] Information not available 12/03/2023 Do You Use Insect Repellent Routinely? Yes [email or web address] Information not available 12/03/2023 Do You Feel Safe At Home? Yes ukcofbst98 Information not available 12/03/2023 Do You Have A Medical Power Of Credit Reporting Clerk? No [email or web address] Information not available 12/03/2023 What Was The Date Of Your Most Recent Tobacco Screening? 12/27/2024 [email or web address] Information not available 12/30/2024 Do You Have Any Pets? No [email or web address] Information not available 12/03/2023 Do You Use Your Seat Belt Or Car Seat Routinely? Yes hwyvvvya01 Information not available 12/03/2023 Do You Have Smoke And Carbon Monoxide Detectors In Your Home? Yes fvselmel30 Information not available 12/03/2023 At What Age Did You Start Smoking Tobacco? 20 [email or web address] Information not available 12/03/2023 Are You Passively Exposed To Smoke? Yes eutrjsem44 Information no t available 12/07/2024 How Much Tobacco Do You Smoke? 0.25 PPD tuqshjel52 Information not available 12/07/2024 Do You Use Sunscreen Routinely? Yes [email or web address] Information not available 12/03/2023 How Many Years Have You Smoked Tobacco? 13 qptyjxci07 Information not available 12/03/2023 Do You Have Difficulty Walking Or Climbing Stairs? No [email or web address] Information not available 12/03/2023 Are You Currently In School? No [email or web address] Information not available 12/03/2023 Sex: Unknown Functional Status Question Answer Note LastModified by Organizat ion Details LastModified Time Do you use any illicit or recreational drugs? No hoycxfuq64 Information not available 11/04/2023 Do you or have you ever used any other forms of tobacco or nicotine? No uwodpojd95 Information not available 11/04/2023 What is your level of alcohol consumption? None gwfgkpfu66 Information not available 12/03/2023 Do you or have you ever used smokeless tobacco? Current snuff user nyxsnoxc10 Information not available 12/07/2024 Are you currently employed? Yes radozcgs37 Information not available 12/03/2023 Do you have transportation difficulties? No crkcmyqj11 Information not available 12/03/2023 Are you able to walk? YESWOREST mzjgsoni09 Information not available 12/03/2023 Do you have difficulty doing errands alone? No alumfazr35 Information not available 12/03/2023 Are you able to care for yourself independently? Yes [email or web address] Information not available 12/03/2023 What is your occupation? construction Information not available 12/03/2023 Do you have difficulty dressing, bathing, grooming, or toileting? No sbpoytzk74 Information not available 12/03/2023 What is your exercise level? Occasional hxaovjiq84 Information not available 12/07/2024 Mental Status Question Answer Note LastModified by Organizat ion Details LastModified Time Do you feel stressed (tense, restless, nervous, or anxious, or unable to sleep at night)? [id number] hrewqbvk40 Information not available 12/07/2024 Do you have difficulty concentrating, remembering or making decisions? No jabklyhr50 Information no t available 12/03/2023 Family History [...] Recorded Time MMR 2 completed KENDAL Lowery - [facility] & [place] 11/04/2023 15:38:09 Td (adult), 2 Lf tetanus toxoid, preservative free, adsorbed 3 completed [facility], KENDAL MENDEZ [facility] & [place] 11/04/2023 15:38:09 Hep B, adolescent or pediatric 2 completed [facility], KENDAL MENDE[facility] - [place] & [place] 11/04/2023 15:38:09 Hep B, adolescent or pediatric 3 completed [facility], KENDAL MENDEZ - [place] & [place] 11/04/2023 15:38:09 Hep B, adolescent/high risk 9 completed [facility], KENDAL MENDEZ [facility] & [place] 11/04/2023 15:38:09 Past Encounters Encounter ID Performer Location Encounter Start Date Encounter Closed Date Diagnosis/Indication Diagnosis SNOMED-CT Code Diagnosis ICD10 Code Diagnosis Note [id number] NYDIA JEAN [facility]APTISTE [facility] [address] [id number] 12/07/2024 11:01:11 12/07/2024 15:17:05 Fatigue 25419036 R53.83 awaiting labs Elevated blood-pressure reading without diagnosis of hypertension 678775620 R03.0 elevated BP reading this morning 134/78prov ided BP log to record at home 2x/day over the next few weeksinstr ucted to keep BP diary if possible to associate w/ activities performedi nstructed proper way to record BPinstruct ed to make appointmen t in 2 weeks for f/u Suspected respiratory disease 319336385 R29.818 referral for sleep studyprovi ded education on importance of proper sleep hygiene [id number] MD [facility] [place] [address] [place] [address] [place] [id number] 12/30/2024 15:07:55 12/30/2024 15:39:47 Obstructive sleep apnea syndrome 23491614 G47.33 Start patient on auto PAP 6-20 cm H2O. Follow up in 2 months. Morbid obesity 201682826 E66.01 Patient aware that weight loss wouldif not improve not eliminate his need for Pap therapy. We are going to Work on diet and exercise. Health Concerns Section Related Observation LastModified by Organization Detai ls LastModified Time None Recorded Concern Status LastModified by Organization Details LastModified Time None Recorded Payers Encounter Date Sequence Insurance Name Policy Number Policy Vazquez Covered Member ID Vazquez Member ID Guarantor Name 12/30/2024 1 [employer] [facility] (MEDICAID HMO) Santy Su [id number] Santy Su
[2025-02-22 11:20] LABS: Hematocrit 46.4 % (42.0-52.0); Hemoglobin 15.5 g/dL (14.1-18.0); Immature Granulocytes % 0.3 %; Mean Corpuscular HGB Conc 33.4 g/dL (31.8-35.4); Mean Corpuscular Hemoglobin 27.7 pg (27.0-31.2); Mean Corpuscular Volume 83.0 fl (80-94); Nucleated Red Blood Cells % 0 %; Platelet Count 237 K/mm3 (142-424); Red Blood Count 5.59 M/mm3 (4.60-6.20); Red Cell Distribution Width-SD 38.5 fL; White Blood Count 7.0 K/mm3 (4.8-10.8)
[2025-02-22 11:40] LABS: Alanine Aminotransferase 29 U/L (12-78); Albumin Level 4.5 g/dl (3.5-5.0); Albumin/Globulin Ratio 1.8 (1.1-1.8); Alkaline Phosphatase 91 U/L (38-126); Anion Gap 10.5 mEq/L (5-15); Aspartate Amino Transferase 24 U/L (17-59); Bilirubin,Total 0.2 mg/dl (0.2-1.3); Blood Urea Nitrogen 12 mg/dl (9-20); Calcium 9.8 mg/dl (8.4-10.2); Carbon Dioxide 29 mmol/L (22.0-30.0); Chloride 105 mmol/L (98-107); Creatinine,Serum 0.80 mg/dl (0.66-1.25); Estimated Glomerular Filt Rate 111 ml/min (>60); GFR (African American) 134 ML/MIN (>60); Globulin 2.5 g/dL (1.3-3.2); Glucose 102 mg/dl (74-100); Potassium 4.5 mmoL/L (3.5-5.1); Sodium 140 mmol/L (136-145); Total Protein,Serum 7.0 g/dl (6.3-8.2)
== END 2025-02-22 23:59 | disposition home or self-care (01) ==
LOC: LAB 10:41
PROVIDERS: Visit Provider Obstetrics & Gynecology
DX: F11.20 Opioid dependence, uncomplicated (principal)
CPT/HCPCS: 36415; 80053; 80074; 85025; 87389